=== PATIENT | female | born 1955 | race Caucasian/White ===

== ENCOUNTER → 2023-09-06 13:07 | Outpatient (REF) | payer OTHER, SELFPAY | LOC: PAVMRI 13:07 | PROVIDERS: ATTENDING PHYSICIAN Specialist; FAMILY PHYSICIAN Family Medicine | DX: R26.0 Ataxic gait (principal); D32.0 Benign neoplasm of cerebral meninges | CPT/HCPCS: 70553; A9575 ==

== ENCOUNTER → 2023-11-07 14:22 | Outpatient (REF) | payer OTHER, SELFPAY | LOC: WDC 14:22 | PROVIDERS: ATTENDING PHYSICIAN Obstetrics & Gynecology Gynecology; FAMILY PHYSICIAN Family Medicine | DX: Z12.31 Encounter for screening mammogram for malignant neoplasm of breast (principal) | CPT/HCPCS: 77063; 77067 ==

== ENCOUNTER → 2024-04-02 06:23 | Day surgery (SDC) | payer OTHER, SELFPAY | LOC: GI 06:23 | PROVIDERS: ATTENDING PHYSICIAN Internal Medicine Gastroenterology; FAMILY PHYSICIAN Family Medicine | DX: Z12.11 Encounter for screening for malignant neoplasm of colon (principal); R19.5 Other fecal abnormalities; R19.4 Change in bowel habit; K64.8 Other hemorrhoids; K57.30 Diverticulosis of large intestine without perforation or abscess without bleeding; D12.2 Benign neoplasm of ascending colon; D12.5 Benign neoplasm of sigmoid colon; D12.0 Benign neoplasm of cecum | CPT/HCPCS: 45385; 45380; 88305 ==

== ENCOUNTER → 2024-06-21 15:14 | Outpatient (REF) | payer OTHER, SELFPAY | LOC: RAD 15:14 | PROVIDERS: ATTENDING PHYSICIAN Internal Medicine Gastroenterology; FAMILY PHYSICIAN Family Medicine | DX: R10.30 Lower abdominal pain, unspecified (principal); R63.4 Abnormal weight loss | CPT/HCPCS: 74177; Q9967 ==

== ENCOUNTER 2024-07-25 06:31 | Day surgery (SDC) | payer OTHER, SELFPAY | END 2024-07-25 11:25 | disposition home or self-care (01) | LOC: GI 06:31 | PROVIDERS: ATTENDING PHYSICIAN Internal Medicine Gastroenterology | DX: K31.89 Other diseases of stomach and duodenum (principal); R12 Heartburn; K29.50 Unspecified chronic gastritis without bleeding | CPT/HCPCS: 43239; 88305; 88342 ==

== ENCOUNTER → 2024-11-28 19:14 | Outpatient (REF) | payer OTHER, SELFPAY | LOC: MRI 19:14 | PROVIDERS: ATTENDING PHYSICIAN Psychiatry & Neurology Neurology; FAMILY PHYSICIAN Family Medicine | DX: G93.49 Other encephalopathy (principal); G43.009 Migraine without aura, not intractable, without status migrainosus; R41.3 Other amnesia | CPT/HCPCS: 70553 ==